=== PATIENT | male | born 1955 | race Caucasian/White ===

== ENCOUNTER 2021-05-13 06:50 | Outpatient (CLI) | payer MEDICARE ==
[~2021-05-13] VITALS: Ht 175.3 cm; Wt 96.5 kg
[2021-05-14] MEDS ORDERED: ASPI-999 PO (11:13)
== END 2021-05-14 14:13 | disposition home or self-care (01) ==
LOC: PREOP 06:50
PROVIDERS: ATTEND Surgery
DX: Z01.818 Encounter for other preprocedural examination (principal)

== ENCOUNTER 2021-05-20 07:31 | Day surgery (SDC) | payer MEDICARE ==
[~2021-05-20] VITALS: Ht 175.3 cm; Wt 96.5 kg
[~2021-05-20 07:31] MED LIST: ASPI-999 PO
[2021-05-20] MEDS ORDERED: LACTATED RINGERS 1,000 ML IV STA (07:33)
[2021-05-20] MEDS ORDERED: LACTATED RINGERS 1,000 ML IV ONE (07:36)
[2021-05-20 07:50] VITALS: BP 130/89
--- NOTE | 2021-05-20 08:12 | Progress Note-Pre Operative ---
Pre-Operative Progress Note H&P Reviewed The H&P was reviewed, patient examined and no changes noted. Time Seen by Provider: 08:09 Date H&P Reviewed: May 20, 2021 Time H&P Reviewed: 08:09 Pre-Operative Diagnosis: + ColBRITT Higuera DO May 20, 2021 08:11
[2021-05-20] MEDS ORDERED: MIDAZOLAM 2 MG/2 ML (VERSED) VIAL ONE (08:38)
[2021-05-20] MEDS ORDERED: PROPOFOL INJECTION 50 ML IV ONE (08:38)
--- NOTE | 2021-05-20 09:13 | Progress Note-Post Operative ---
Post-Operative Progess Note Surgeon (s)/Alumni Relations Coordinator (s) Surgeon BRITT GROSSMAN DO Alumni Relations Coordinator: PARMINDER JuneII Pre-Operative Diagnosis + Cologuard Post-Operative Diagnosis polyps diverticula int hemorrhoids Procedure & Operative Findings Date of Procedure 05/20/21 Procedure Performed/Findings Colon with snare polypectomy PROCEDURE NOTE: After informed consent was obtained, the patient was brought to the endoscopy suite, placed in bed in left lateral decubitus position. He was administered IV sedation by the TOBACCO SORTER who then monitored his vitals the entire time, heart rate, blood pressure and pulse ox and the scope was inserted, pushed all the way to about 130 cm and pushed into the cecum, took a picture of appendiceal orifice and then slowly withdrew the scope insufflating to look circumferentially at the alvarado starting in the cecum and up the ascending colon. In the ascending colon I found two polyps which were removed with snare polypectomy and then suctioned them up. Continued up to the hepatic flexure and then down the transverse colon. Found another polyp here and did another snare polypectomy. Continued to the splenic flexure, into the descending colon and down into the sigmoid; where I saw a few small diverticula. Finally into the rectal vault where I found another small polyp; which was removed with snare and may have actually seen 2 more small polyps. I retroflexed the scope and took a picture of the internal hemorrhoids. The patient tolerated the procedure. He was recovered in endoscopy suite. Anesthesia Type IV sedation by TOBACCO SORTER Estimated Blood Loss Estimated blood loss (mL): scant Specimens/Packing Specimens Removed asc polyp x 2 transverse polyp rectal polyp BRITT GROSSMAN DO May 20, 2021 09:12
--- NOTE | 2021-05-20 09:13 | Endoscopy Discharge Instruct ---
Endo Procedure/Findings Findings 1.: Polyp 2.: Diverticulosis 3.: Internal Hemorrhoids Discharge Instructions - Activity: You might feel a little sleepy until tomorrow. This is due to the medicine you received to relax you. Until tomorrow, you should: NOT drive a car, operate machinery or power tools. NOT drink any alcoholic beverages. NOT make any important decisions or sign importortant papers. Do not return to work until tomorrow, unless otherwise instructed. Resume previous activities tomorrow. Diet: Start by taking liquids. If you tolerate liquids, advance to solid food. 1.: Colonscopy in 3 years Notify Physician - If you experience excessive bleeding, unusual abdominal pain, fever, or chest pain, contact your doctor immediately. BRITT GROSSMAN DO May 20, 2021 09:13
[2021-05-20 09:14] VITALS: BP 87/57
[2021-05-20 09:19] VITALS: BP 92/60
[2021-05-20 09:23] VITALS: BP 101/66
[2021-05-20 09:45] VITALS: BP 101/66
[2021-05-20 10:00] VITALS: BP 105/67
--- NOTE | 2021-05-20 12:01 | Anesthesia-General Post-Op ---
MAC Patient Condition Mental Status/LOC: Same as Preop Cardiovascular: Satisfactory Nausea/Vomiting: Absent Respiratory: Satisfactory Pain: Controlled Complications: Absent Post Op Complications Complications None Follow Up Care/Instructions Patient Instructions None needed. Anesthesiology Discharge Order Discharge Order Patient is doing well, no complaints, stable vital signs, no apparent adverse anesthesia problems. No complications reported per nursing. OZZIE CONTRERAS CRNA May 20, 2021 12:01
== END 2021-05-20 10:05 | disposition home or self-care (01) ==
LOC: ENDO 07:31
PROVIDERS: ATTEND Surgery
DX: D12.2 Benign neoplasm of ascending colon (principal); D12.3 Benign neoplasm of transverse colon; D12.8 Benign neoplasm of rectum; K57.30 Diverticulosis of large intestine without perforation or abscess without bleeding; K64.8 Other hemorrhoids; F17.210 Nicotine dependence, cigarettes, uncomplicated; Z88.0 Allergy status to penicillin; Z79.82 Long term (current) use of aspirin